=== PATIENT | female | born 1940 | race Hispanic/Latino ===

== ENCOUNTER 2017-06-13 10:49 | Day surgery (SDC) | payer MEDICARE, BC ==
[2017-06-05 09:21] VITALS: BMI 25.7
[2017-06-13 11:18] VITALS: TEMP 98
[2017-06-13] MEDS ORDERED: Etomidate 20 mg/10ml Inj IV ONE (12:47)
[2017-06-13] MEDS ORDERED: Sodium Chloride 0.9% 1,000 ML IV SCH (13:45)
[2017-06-13 14:37] VITALS: BP 134/57; PULSE 75; RESP 97; O2SAT 97
== END 2017-06-13 15:15 | disposition home or self-care (01) ==
LOC: ENDO 10:49
PROVIDERS: ATTEND Internal Medicine Gastroenterology
DX: K29.70 Gastritis, unspecified, without bleeding (principal); D12.2 Benign neoplasm of ascending colon; K57.30 Diverticulosis of large intestine without perforation or abscess without bleeding; K64.8 Other hemorrhoids; K62.5 Hemorrhage of anus and rectum; K59.09 Other constipation; R12 Heartburn
CPT/HCPCS: 43239; 45385; 88305; 88342; J3010; J7040 ×2

== ENCOUNTER 2018-11-20 08:58 | Outpatient (CLI) | payer MEDICARE, BC | END 2018-11-20 08:59 | disposition home or self-care (01) | LOC: RAD 08:58 ==

== ENCOUNTER 2018-12-16 15:37 | Emergency (ER) | payer MEDICARE, BC ==
[2018-12-16] MEDS ORDERED: TDAP Vaccine 0.5 mL Syr IM ONE (15:52)
[2018-12-16 15:56] VITALS: BMI 24.7
--- NOTE | 2018-12-16 15:59 | ED PDOC ---
Arrival/HPI - General Chief Complaint: Trauma Time Seen by Provider: 12/16/18 15:40 Historian: Patient - History of Present Illness Time/Duration: Prior to Arrival Symptom Onset: Sudden Symptom Course: Unchanged Severity Level: Mild Associated Symptoms (Text): 12/16/18 15:56 Just prior to arrival patient was stepping up the curb and her foot got caught causing her to fall forward striking her head. She is on anticoagulation. She hit her right infraorbital area with a superficial abrasion and tenderness swelling and ecchymosis. There is some superficial abrasions on the bilateral dorsal hands. She needs tetanus immunization. No neck pain. No loss of consciousness. Mild headache. No dizziness or lightheadedness. No numbness tingling or paresthesias. No weakness. No chest pain. No abdominal pain nausea or vomiting. No other extremity trauma. Past Medical History - Cardiac Hx Pacemaker: No - Neurological Hx Paralysis: No - Hematological/Oncological Hx Blood Transfusions: No Hx Blood Transfusion Reaction: No - Musculoskeletal/Rheumatological Hx Musculoskeletal Disorders: Yes - Psychiatric Hx Emotional Abuse: No Hx Physical Abuse: No Hx Substance Use: No - Anesthesia Hx Anesthesia Reactions: No Hx Malignant Hyperthermia: No - Suicidal Assessment Feels Threatened In Home Enviroment: No Family/Social History - Physician Review Nursing Documentation Reviewed: Yes Family/Social History: Unknown Family HX Smoking Status: Never Smoked Hx Alcohol Use: Yes (SOCIALLY) Hx Substance Use: No Allergies/Home Meds Allergies/Adverse Reactions: Allergies ciprofloxacin Allergy (Verified 12/16/18 16:13) URTICARIA Home Medications: Home Meds Medication Instructions Recorded Confirmed Amlodipine Besylate 10 mg PO QAM 05/23/13 12/16/18 Atorvastatin [Lipitor] 5 mg PO DAILY 05/23/13 12/16/18 Aspirin [[place] Aspirin EC] 81 mg PO DAILY 06/05/17 12/16/18 Cholecalciferol (Vitamin D3) 1,000 iu PO DAILY 06/05/17 12/16/18 [Vitamin D3] Vit A/Vit C/Vit E/Zinc/Copper 2 cap PO DAILY 06/05/17 12/16/18 [Icaps Areds Softgel] Triamterene/Hydrochlorothiazid 1 tab PO DAILY 12/16/18 12/16/18 [Triamterene-Hctz 37.5-25 mg Tb] amLODIPine [Norvasc] 5 mg PO DAILY 12/16/18 12/16/18 Review of Systems - Physician Review All systems were reviewed & negative as marked: Yes - Review of Systems Constitutional: Normal Respiratory: Normal Cardiovascular: Normal Gastrointestinal: Normal Musculoskeletal: absent: Back Pain, Neck Pain Neurological: Headache. absent: Dizziness, Focal Weakness, Gait Changes, Speech Changes, Facial Droop, Disequilibrium, Seizure Physical Exam Temperature: Afebrile Blood Pressure: Hypertensive Pulse: Regular Respiratory Rate: Normal Appearance: Positive for: Well-Appearing, Non-Toxic, Comfortable Pain Distress: None Mental Status: Positive for: Alert and Oriented X 3 - Systems Exam Head: Present: Normocephalic, Tenderness, Contusion, Swelling, Ecchymosis, Abrasion, Other (Right infraorbital and maxillary tenderness swelling ecchymosis and abrasion). No: Atraumatic Pupils: Present: PERRL Extroacular Muscles: Present: EOMI Conjunctiva: Present: Normal Ears: Present: NORMAL TM, Normal Canal. No: Erythema, TM Bulging Mouth: Present: Moist Mucous Membranes Pharnyx: No: ERYTHEMA, EXUDATE, TONSILS ENLARGED Neck: Present: Normal Range of Motion. No: MIDLINE TENDERNESS, Paraspinal Tenderness Respiratory/Chest: Present: Clear to Auscultation, Good Air Exchange. No: Respiratory Distress, Accessory Muscle Use, Tender to Palpation Abdomen: No: Tenderness, Distention, Peritoneal Signs, Rebound, Guarding Back: Present: Normal Inspection. No: Midline Tenderness, Paraspinal Tenderness Upper Extremity: Present: Normal ROM, NORMAL PULSES, Other (Superficial nontender bilateral dorsal hand abrasions. Superficial nontender abrasion of the right shoulder with full range of motion.). No: Cyanosis, Edema, Tenderness, Swelling, Erythema, Neurovascularly Intact, Deformity Lower Extremity: Present: Normal Inspection. No: Edema Neurological: Present: GCS=15, CN II-XII Intact, Speech Normal, Motor Func Grossly Intact, Normal Sensory Function, Normal Cerebellar Funct, Gait Normal Skin: Present: Abrasion Psychiatric: Present: Alert, Oriented x 3, Normal Insight, Normal Concentration Medical Decision Making - RAD Interpretation Radiology Orders: 12/16/18 15:52 HEAD W/O CONTRAST [CT] Stat 12/16/18 15:54 MAXILLOFACIAL W/O CONTRAST [CT] Stat CT scan of the head is read by the radiologist shows no acute findings. CT scan of the maxillofacial bones as read by the radiologist shows no fracture. Medical Insurance Clerk: Radiologist - Medication Orders Current Medication Orders: Tetanus/Reduced Diphtheria/Acell Pertussis (Boostrix Vaccine Inj) 0.5 ml IM .ONCE ONE Stop: 12/16/18 15:53 Disposition/Present on Arrival - Present on Arrival Any Indicators Present on Arrival: No History of DVT/PE: No History of Uncontrolled Diabetes: No Urinary Catheter: No History of Decub. Ulcer: No - Disposition Have Diagnosis and Disposition been Completed?: Yes Diagnosis: Head contusion, Contusion of face, Abrasion, face w/o infection, Hand abrasion, Shoulder abrasion Disposition: HOME/ ROUTINE Disposition Time: 17:59 Patient Plan: Discharge Condition: GOOD Discharge Instructions (ExitCare): Skin Abrasions, Minor Head Injury, Skin Abrasions (DC), Contusion (DC) Additional Instructions: Rest and ice. Tylenol as directed on bottle as needed. Follow-up with PMD for a wound check. Follow-up in ER as needed. Referrals: PCP,NO [Primary Care Provider] - Follow up with primary Forms: [employer] ([place])
[2018-12-16] MEDS ORDERED: Bacitracin 500 Units/gm Oint Foilpak UD ONE (16:31)
[2018-12-16 17:32] VITALS: BP 145/73; PULSE 72; RESP 17; TEMP 98.6; O2SAT 99
--- NOTE | 2018-12-16 17:47 | CT ---
Date of service: 12/16/2018 PROCEDURE: CT HEAD WITHOUT CONTRAST. HISTORY: trauma on anticoagulation COMPARISON: None available. TECHNIQUE: Axial computed tomography images were obtained through the head/brain without intravenous contrast. Supplemental Coronal and Sagittal projections created and reviewed. Radiation dose: Total exam DLP = 966.6 mGy-cm. This CT exam was performed using one or more of the following dose reduction techniques: Automated exposure control, adjustment of the mA and/or kV according to patient size, and/or use of iterative reconstruction technique. FINDINGS: HEMORRHAGE: No intracranial hemorrhage. BRAIN: No mass effect or edema. No atrophy or chronic microvascular ischemic changes. VENTRICLES: Unremarkable. No hydrocephalus. CALVARIUM: Unremarkable. PARANASAL SINUSES: Unremarkable as visualized. No significant inflammatory changes. MASTOID AIR CELLS: Unremarkable as visualized. No inflammatory changes. OTHER FINDINGS: None. IMPRESSION: Normal CT of the Head.
--- NOTE | 2018-12-16 17:56 | CT ---
Date of service: 12/16/2018 PROCEDURE: CT MAXILLOFACIAL BONES WITHOUT CONTRAST HISTORY: trauma COMPARISON: None available. TECHNIQUE: Contiguous axial CT images of the maxillofacial bones were obtained. Coronal and sagittal reformats were generated. Radiation dose: Total exam DLP = 750.02 mGy-cm. This CT exam was performed using one or more of the following dose reduction techniques: Automated exposure control, adjustment of the mA and/or kV according to patient size, and/or use of iterative reconstruction technique. FINDINGS: NASAL BONES: Unremarkable. ORBITS: Unremarkable. PARANASAL SINUSES/ MASTOIDS: Mild chronic ethmoid air cell disease. MAXILLA: Unremarkable. MANDIBLE/ TEMPOROMANDIBULAR JOINTS: Unremarkable. SKULL BASE: Unremarkable. TEMPORAL BONES: Middle ears and mastoid grossly unremarkable. OTHER FINDINGS: None. IMPRESSION: No significant or acute findings to account for/ related to the clinical presentation.
== END 2018-12-16 18:08 | disposition home or self-care (01) ==
LOC: ED 15:37
DX: S00.83XA Contusion of other part of head, initial encounter (principal); S00.81XA Abrasion of other part of head, initial encounter; S40.212A Abrasion of left shoulder, initial encounter; S40.211A Abrasion of right shoulder, initial encounter; W19.XXXA Unspecified fall, initial encounter; Z79.01 Long term (current) use of anticoagulants; Z23 Encounter for immunization